=== PATIENT | female | born 1950 | race Caucasian/White ===

== ENCOUNTER → 2020-12-22 | Day surgery (SDC) | payer MEDICARE, OTHER ==
[~2020-12-22] MED LIST: ALL DAY ALLERGY10 MG PO; AMLODIPINE BESYL5 MG PO; ASPIRIN CHEWABL81 MG PO; BASAGLAR K100 UNIT/1 SQ; LOSARTAN POTAS100 MG PO; METAMUCIL POWD822 GM PO; METOPROLOL SUC100 MG PO
== END | disposition home or self-care (01) ==
LOC: OR 06:22
DX: Z12.11 Encounter for screening for malignant neoplasm of colon (principal); D12.2 Benign neoplasm of ascending colon; D12.0 Benign neoplasm of cecum; D12.8 Benign neoplasm of rectum; K57.30 Diverticulosis of large intestine without perforation or abscess without bleeding; I10 Essential (primary) hypertension; K59.09 Other constipation; E11.9 Type 2 diabetes mellitus without complications; E66.3 Overweight; Z79.4 Long term (current) use of insulin; K64.1 Second degree hemorrhoids; Z68.28 Body mass index [BMI] 28.0-28.9, adult
CPT/HCPCS: 82962; J2704; J7040